=== PATIENT | male | born 1930 | race Caucasian/White ===

== ENCOUNTER 2017-03-03 11:46 | Inpatient (IN) | payer OTHER ==
[~2017-03-03] VITALS: Ht 177.8 cm; Wt 76.7 kg
[2017-03-03] MEDS ORDERED: SODIUM CHLORIDE FLUSH 10ML SYR IVF ONE (12:30)
[2017-03-03] MEDS ORDERED: PLEASE ENTER ALLERGIES MC SCH ×2 (12:30)
[2017-03-03 13:04] LABS: BLOOD UREA NITROGEN 11 mg/dL (7-18)
[2017-03-03] MEDS ORDERED: OMNIPAQUE 350 MG/ML, 100ML BOTTLE ONE (13:31)
[2017-03-03] MEDS ORDERED: PIPERACILLIN/TAZO 3.375 GM in SODIUM CHLORIDE 0.9% 50 ML IV ONE (14:00)
[2017-03-03] MEDS ORDERED: PHARMACOKINETIC CONSULTATION MC ONE (14:00)
[2017-03-03] MEDS ORDERED: VANCOMYCIN PER PHARMACY MC PRN (14:00)
[2017-03-03] MEDS ORDERED: PIPERACILLIN/TAZO/PMX 3.375GM 50 ML IV ONE (14:00)
[2017-03-03] MEDS ORDERED: VANCOMYCIN 1,400 MG in SODIUM CHLORIDE 0.9% 250 ML IV ONE (14:00)
[2017-03-03] MEDS ORDERED: morphine SULFATE 10 MG/ML, 1ML IVPush PRN (15:00)
[2017-03-03] MEDS ORDERED: HYDROcodone/APAP 5/325 TABLET PO PRN (15:00)
[2017-03-03] MEDS ORDERED: ONDANSETRON 2MG/ML, 2ML IVPush PRN (15:00)
[2017-03-03] MEDS ORDERED: ACETAMINOPHEN 325 MG TABLET PO PRN (15:00)
[2017-03-03 16:55] VITALS: BP 145/82
[2017-03-03] MEDS: CEFTAROLINE 400 MG in SODIUM CHLORIDE 0.9% 100 ML IV SCH (17:45)
[2017-03-03] MEDS: ENOXAPARIN 40 MG/0.4 ML SQ SCH (17:45)
[2017-03-03 18:50] VITALS: BP 163/82
[2017-03-03] MEDS: FAMOTIDINE 20 MG TABLET PO SCH (22:37)
[2017-03-04 02:51] VITALS: BP 145/72
[2017-03-04 05:33] LABS: BLOOD UREA NITROGEN 10 mg/dL (7-18)
[2017-03-04] MEDS: CEFTAROLINE 400 MG in SODIUM CHLORIDE 0.9% 100 ML IV SCH ×2 (06:06→17:24)
[2017-03-04] MEDS: FAMOTIDINE 20 MG TABLET PO SCH ×2 (09:42→20:09)
[2017-03-04] MEDS: TAMSULOSIN 0.4 MG CAP.ER.24H PO SCH (09:42)
[2017-03-04 09:44] VITALS: BP 108/51
[2017-03-04 13:08] VITALS: BP 113/60
[2017-03-04] MEDS: ENOXAPARIN 40 MG/0.4 ML SQ SCH (17:24)
[2017-03-04 20:31] VITALS: BP 112/62
[2017-03-05 04:03] VITALS: BP 122/71
[2017-03-05] MEDS: CEFTAROLINE 400 MG in SODIUM CHLORIDE 0.9% 100 ML IV SCH ×2 (05:22→17:13)
[2017-03-05 06:11] LABS: BLOOD UREA NITROGEN 10 mg/dL (7-18)
[2017-03-05 07:14] VITALS: BP 115/62
[2017-03-05] MEDS: FAMOTIDINE 20 MG TABLET PO SCH ×2 (10:21→20:31)
[2017-03-05] MEDS: TAMSULOSIN 0.4 MG CAP.ER.24H PO SCH (10:21)
[2017-03-05 13:57] VITALS: BP 126/53
[2017-03-05] MEDS: ENOXAPARIN 40 MG/0.4 ML SQ SCH (17:13)
[2017-03-05 20:27] VITALS: BP 123/63
[2017-03-06 02:44] VITALS: BP 108/59
[2017-03-06] MEDS: CEFTAROLINE 400 MG in SODIUM CHLORIDE 0.9% 100 ML IV SCH ×2 (05:23→17:07)
[2017-03-06] MEDS: FAMOTIDINE 20 MG TABLET PO SCH ×2 (10:13→21:05)
[2017-03-06] MEDS: TAMSULOSIN 0.4 MG CAP.ER.24H PO SCH (10:13)
[2017-03-06 13:39] VITALS: BP 127/71
[2017-03-06] MEDS: ENOXAPARIN 40 MG/0.4 ML SQ SCH (17:06)
[2017-03-06 20:03] VITALS: BP 132/67
[2017-03-07 04:17] VITALS: BP 109/59
[2017-03-07] MEDS: CEFTAROLINE 400 MG in SODIUM CHLORIDE 0.9% 100 ML IV SCH (05:11)
[2017-03-07 08:05] VITALS: BP 139/77
[2017-03-07] MEDS: CLINDAMYCIN 300 MG CAPSULE PO SCH ×3 (08:45→21:15)
[2017-03-07] MEDS: CEFDINIR 300 MG CAPSULE PO SCH ×2 (08:45→21:15)
[2017-03-07] MEDS: TAMSULOSIN 0.4 MG CAP.ER.24H PO SCH (08:45)
[2017-03-07] MEDS: LACTOBACILLUS CHEW TABLET PO SCH ×3 (08:45→21:15)
[2017-03-07 14:21] VITALS: BP 127/68
[2017-03-07] MEDS: ENOXAPARIN 40 MG/0.4 ML SQ SCH (16:37)
[2017-03-07 20:30] VITALS: BP 146/76
[2017-03-08 00:58] VITALS: BP 131/76
[2017-03-08] MEDS: CLINDAMYCIN 300 MG CAPSULE PO SCH ×4 (02:57→20:38)
[2017-03-08 06:48] VITALS: BP 122/71
[2017-03-08] MEDS: CEFDINIR 300 MG CAPSULE PO SCH ×2 (09:08→20:38)
[2017-03-08] MEDS: TAMSULOSIN 0.4 MG CAP.ER.24H PO SCH (09:08)
[2017-03-08] MEDS: LACTOBACILLUS CHEW TABLET PO SCH ×3 (09:08→20:38)
[2017-03-08 14:29] VITALS: BP 115/68
[2017-03-08] MEDS: ENOXAPARIN 40 MG/0.4 ML SQ SCH (17:01)
[2017-03-08 18:53] VITALS: BP 133/74
[2017-03-09] MEDS: CLINDAMYCIN 300 MG CAPSULE PO SCH ×4 (03:19→21:21)
[2017-03-09 03:22] VITALS: BP 102/57
[2017-03-09 07:01] VITALS: BP 118/57
[2017-03-09] MEDS: LACTOBACILLUS CHEW TABLET PO SCH ×3 (10:07→21:21)
[2017-03-09] MEDS: TAMSULOSIN 0.4 MG CAP.ER.24H PO SCH (10:07)
[2017-03-09] MEDS: CEFDINIR 300 MG CAPSULE PO SCH ×2 (10:07→21:21)
[2017-03-09 14:32] VITALS: BP 92/51
[2017-03-09] MEDS: ENOXAPARIN 40 MG/0.4 ML SQ SCH (15:42)
[2017-03-09 18:51] VITALS: BP 107/60
[2017-03-10 00:55] VITALS: BP 104/60
[2017-03-10] MEDS: CLINDAMYCIN 300 MG CAPSULE PO SCH ×4 (03:08→21:51)
[2017-03-10 08:53] VITALS: BP 107/57
[2017-03-10] MEDS: CEFDINIR 300 MG CAPSULE PO SCH ×2 (09:03→21:51)
[2017-03-10] MEDS: LACTOBACILLUS CHEW TABLET PO SCH ×3 (09:03→21:51)
[2017-03-10] MEDS: TAMSULOSIN 0.4 MG CAP.ER.24H PO SCH (09:03)
[2017-03-10 14:29] VITALS: BP 99/55
[2017-03-10] MEDS: ENOXAPARIN 40 MG/0.4 ML SQ SCH (14:54)
[2017-03-10 18:37] VITALS: BP 121/78
[2017-03-11 02:32] VITALS: BP 110/55
[2017-03-11] MEDS: CLINDAMYCIN 300 MG CAPSULE PO SCH ×4 (03:16→20:22)
[2017-03-11 09:25] VITALS: BP 99/58
[2017-03-11] MEDS: LACTOBACILLUS CHEW TABLET PO SCH ×3 (09:35→20:22)
[2017-03-11] MEDS: TAMSULOSIN 0.4 MG CAP.ER.24H PO SCH (09:35)
[2017-03-11] MEDS: CEFDINIR 300 MG CAPSULE PO SCH ×2 (09:35→20:22)
[2017-03-11] MEDS ORDERED: DIPHENHYDRAMINE 50 MG CAPSULE PO PRN (10:30)
[2017-03-11] MEDS: MAGNESIUM HYDROXIDE 8%, 30ML UDC PO PRN (10:55)
[2017-03-11 14:42] VITALS: BP 109/59
[2017-03-11] MEDS: ENOXAPARIN 40 MG/0.4 ML SQ SCH (14:56)
[2017-03-11 18:28] VITALS: BP 98/47
[2017-03-12] MEDS: CLINDAMYCIN 300 MG CAPSULE PO SCH ×4 (02:32→21:29)
[2017-03-12 03:15] VITALS: BP 102/55
[2017-03-12 07:05] VITALS: BP 108/61
[2017-03-12] MEDS: LACTOBACILLUS CHEW TABLET PO SCH ×3 (08:45→21:29)
[2017-03-12] MEDS: CEFDINIR 300 MG CAPSULE PO SCH ×2 (08:45→21:29)
[2017-03-12] MEDS: TAMSULOSIN 0.4 MG CAP.ER.24H PO SCH (08:45)
[2017-03-12 14:00] VITALS: BP 107/64
[2017-03-12] MEDS: ENOXAPARIN 40 MG/0.4 ML SQ SCH (15:59)
[2017-03-12 21:20] VITALS: BP 110/62
[2017-03-13 01:41] VITALS: BP 96/52
[2017-03-13] MEDS: CLINDAMYCIN 300 MG CAPSULE PO SCH ×4 (03:36→21:56)
[2017-03-13] MEDS: MAGNESIUM HYDROXIDE 8%, 30ML UDC PO PRN (05:52)
[2017-03-13 08:51] VITALS: BP 126/69
[2017-03-13] MEDS: LACTOBACILLUS CHEW TABLET PO SCH ×3 (09:03→21:56)
[2017-03-13] MEDS: TAMSULOSIN 0.4 MG CAP.ER.24H PO SCH (09:03)
[2017-03-13] MEDS: CEFDINIR 300 MG CAPSULE PO SCH ×2 (09:05→21:56)
[2017-03-13 14:57] VITALS: BP 106/55
[2017-03-13] MEDS: POLYETHYLENE GLYCOL 17 GM PACKET PO SCH (15:34)
[2017-03-13] MEDS: ENOXAPARIN 40 MG/0.4 ML SQ SCH (15:34)
[2017-03-13 20:46] VITALS: BP 105/61
[2017-03-14 00:51] VITALS: BP 120/56
[2017-03-14] MEDS: CLINDAMYCIN 300 MG CAPSULE PO SCH ×4 (03:52→22:20)
[2017-03-14] MEDS: CEFDINIR 300 MG CAPSULE PO SCH ×2 (08:25→22:20)
[2017-03-14] MEDS: POLYETHYLENE GLYCOL 17 GM PACKET PO SCH (08:25)
[2017-03-14] MEDS: TAMSULOSIN 0.4 MG CAP.ER.24H PO SCH (08:25)
[2017-03-14] MEDS: LACTOBACILLUS CHEW TABLET PO SCH ×3 (08:25→22:20)
[2017-03-14 08:45] VITALS: BP 146/74
[2017-03-14 15:17] VITALS: BP 109/62
[2017-03-14] MEDS: ENOXAPARIN 40 MG/0.4 ML SQ SCH (15:39)
[2017-03-14 20:10] VITALS: BP 117/63
[2017-03-15 04:06] VITALS: BP 121/66
[2017-03-15] MEDS: CLINDAMYCIN 300 MG CAPSULE PO SCH ×4 (04:20→20:08)
[2017-03-15 06:45] VITALS: BP 123/63
[2017-03-15] MEDS: LACTOBACILLUS CHEW TABLET PO SCH ×3 (09:28→20:08)
[2017-03-15] MEDS: CEFDINIR 300 MG CAPSULE PO SCH ×2 (09:28→20:08)
[2017-03-15] MEDS: POLYETHYLENE GLYCOL 17 GM PACKET PO SCH (09:28)
[2017-03-15] MEDS: TAMSULOSIN 0.4 MG CAP.ER.24H PO SCH (09:28)
[2017-03-15 13:26] VITALS: BP 101/65
[2017-03-15] MEDS: ENOXAPARIN 40 MG/0.4 ML SQ SCH (15:20)
[2017-03-15] MEDS ORDERED: ACID1TAB7 PO (15:45)
[2017-03-15] MEDS ORDERED: CLIN300C93 PO (15:45)
[2017-03-15] MEDS ORDERED: TAMS-11 PO (15:45)
[2017-03-15] MEDS ORDERED: CEFD300C37 PO (15:45)
[2017-03-15] MEDS ORDERED: HYDR-3240 PO (15:46)
[2017-03-15 20:10] VITALS: BP 107/60
[2017-03-16] MEDS: CLINDAMYCIN 300 MG CAPSULE PO SCH ×3 (02:55→16:00)
[2017-03-16 03:19] VITALS: BP 110/55
[2017-03-16 07:12] VITALS: BP 123/65
[2017-03-16] MEDS: MAGNESIUM HYDROXIDE 8%, 30ML UDC PO PRN (07:50)
[2017-03-16] MEDS: POLYETHYLENE GLYCOL 17 GM PACKET PO SCH (09:53)
[2017-03-16] MEDS: LACTOBACILLUS CHEW TABLET PO SCH ×2 (09:53→16:00)
[2017-03-16] MEDS: TAMSULOSIN 0.4 MG CAP.ER.24H PO SCH (09:53)
[2017-03-16] MEDS: CEFDINIR 300 MG CAPSULE PO SCH (09:53)
[2017-03-16] MEDS ORDERED: POLY17PO5 PO (13:56)
[2017-03-16] MEDS ORDERED: LACT1CAP4 PO (13:57)
[2017-03-16 13:58] VITALS: BP 104/60
[2017-03-16] MEDS: ENOXAPARIN 40 MG/0.4 ML SQ SCH (16:00)
== END 2017-03-16 16:00 | disposition home health service (06) | DRG 602 ==
LOC: ED 13:50 → EDIP 14:50 → 4NOR 16:19
PROVIDERS: ADMIT Internal Medicine; ATTEND Emergency Medicine
DX: L03.317 Cellulitis of buttock (principal); L89.313 Pressure ulcer of right buttock, stage 3; E87.1 Hypo-osmolality and hyponatremia; L97.319 Non-pressure chronic ulcer of right ankle with unspecified severity; N39.0 Urinary tract infection, site not specified; L02.31 Cutaneous abscess of buttock; D63.8 Anemia in other chronic diseases classified elsewhere; K59.00 Constipation, unspecified; N40.0 Benign prostatic hyperplasia without lower urinary tract symptoms; Z74.01 Bed confinement status; L89.510 Pressure ulcer of right ankle, unstageable; B95.62 Methicillin resistant Staphylococcus aureus infection as the cause of diseases classified elsewhere; L89.159 Pressure ulcer of sacral region, unspecified stage; B96.20 Unspecified Escherichia coli [E. coli] as the cause of diseases classified elsewhere; Z99.3 Dependence on wheelchair
CPT/HCPCS: 36415; 72193; 80048; 82040; 83605; 84145; 85025; 87040; 87070; 87077; 87186; 87205; 96365; 96366; J0712; J1650; J3370; Q9967; J7050

== ENCOUNTER → 2017-03-21 | Outpatient (CLI) | payer OTHER ==
[~2017-03-21] MED LIST: ACID1TAB7 PO; CEFD300C37 PO; CLIN300C93 PO; HYDR-3240 PO; LACT1CAP4 PO; POLY17PO5 PO; TAMS-11 PO
== END | disposition home or self-care (01) ==
LOC: WOUND 09:42
PROVIDERS: ATTEND Physician Assistant
DX: L89.510 Pressure ulcer of right ankle, unstageable (principal); L02.31 Cutaneous abscess of buttock; Z86.14 Personal history of Methicillin resistant Staphylococcus aureus infection
CPT/HCPCS: 11042; 99215